=== PATIENT | female | born 1975 | race Hispanic/Latino ===

== ENCOUNTER → 2021-04-21 | Outpatient (CLI) | payer BC | LOC: MAMMO 13:51 | PROVIDERS: ATTEND Emergency Medicine | DX: Z12.31 Encounter for screening mammogram for malignant neoplasm of breast (principal); R20.2 Paresthesia of skin | CPT/HCPCS: 77067 ==

== ENCOUNTER → 2021-04-28 | Outpatient (CLI) | payer BC | LOC: MRI 10:55 | PROVIDERS: ATTEND Emergency Medicine | DX: Z12.31 Encounter for screening mammogram for malignant neoplasm of breast (principal); R20.2 Paresthesia of skin | CPT/HCPCS: 72141 ==

== ENCOUNTER → 2022-08-17 | Outpatient (CLI) | payer BC | LOC: MAMMO 11:35 | PROVIDERS: ATTEND Emergency Medicine | DX: Z12.31 Encounter for screening mammogram for malignant neoplasm of breast (principal) | CPT/HCPCS: 77067 ==

== ENCOUNTER → 2024-08-31 | Outpatient (REF) | payer OTHER | LOC: MAMMO 08:53 | PROVIDERS: ATTEND Emergency Medicine | DX: Z12.31 Encounter for screening mammogram for malignant neoplasm of breast (principal) | CPT/HCPCS: 77067 ==